=== PATIENT | male | born 1940 | race Caucasian/White ===

== ENCOUNTER 2016-05-24 07:28 | Day surgery (SDC) | payer OTHER ==
[2016-05-23 10:58] VITALS: BMI 54.9
[2016-05-24] MEDS ORDERED: KETAMINE HCL 200 MG/20 ML VIAL ONE (09:14)
[2016-05-24] MEDS ORDERED: ceFAZolin SODIUM 1 GM VIAL IVPB ONE (09:22)
[2016-05-24] MEDS ORDERED: DEXAMETHASONE SOD PHOSPHATE 4 MG/1 ML VIAL ONE (09:57)
[2016-05-24] MEDS ORDERED: ceFAZolin SODIUM 1 GM VIAL ONE (09:57)
[2016-05-24] MEDS ORDERED: ONDANSETRON 4 MG/2 ML VIAL IVPUSH PRN (10:07)
[2016-05-24] MEDS ORDERED: LACTATED RINGERS SOLUTION 1,000 ML IV SCH (10:15)
[2016-05-24 10:32] VITALS: TEMP 98.2
--- NOTE | 2016-05-24 10:39 | OP ---
Operative Note - Note: Operative Date: 05/24/16 Pre-Operative Diagnosis: right renal calulus Operation: ESWL Post-Operative Diagnosis: Same as Pre-op Surgeon: Chris Arredondo MD. Anesthesia: MAC
[2016-05-24 13:04] VITALS: BP 130/60; PULSE 60
--- NOTE | 2016-06-16 11:47 | OP ---
DATE OF OPERATION: * Camilla [id number]
--- NOTE | 2016-08-15 20:55 | OP ---
DATE OF OPERATION: 05/24/2016 HISTORY: This is a 73-year-old gentleman with history of multiple renal calculi in the past. The patient was found preoperatively to have a recurrent stone was recommended to have lithotripsy. It was a 10-mm left middle pole stone. All complications discussed with patient. The patient is morbidly obese and has increased risk of complications, which were discussed with him clearly. BRIEF OPERATIVE NOTE: The patient was brought to the operating room, placed in supine position. The stone was then localized using 3D fluoroscopy. Patient was sedated. Approximately 2500 shocks were delivered in electromagnetic fashion. It was indeterminate whether the stone actually fragmented radiographically. The patient tolerated the procedure well, was brought to the recovery room in stable and satisfactory condition. Camilla [id number]
== END 2016-05-24 13:04 | disposition home or self-care (01) ==
LOC: JASU-SURG 07:28
PROVIDERS: ATTEND Urology
PROC: 0TF3XZZ Fragmentation in Right Kidney Pelvis, External Approach (ICD-10-PCS; principal; 2016-05-24 09:00)
DX: N20.0 Calculus of kidney (principal)
CPT/HCPCS: 94760